=== PATIENT | male | born 1980 | race Caucasian/White ===

== ENCOUNTER 2020-06-20 16:07 | Emergency (ER) | payer SELFPAY ==
[~2020-06-20] VITALS: Ht 188 cm; Wt 109.1 kg
[2020-06-20 16:33] VITALS: Ht 188 cm; Wt 109.1 kg
[2020-06-20] MEDS ORDERED: AUGMENTIN 875-11 TAB PO (19:16)
[2020-06-20 19:30] VITALS: BP 132/81
== END 2020-06-21 07:35 | disposition home or self-care (01) ==
LOC: D.ER 16:07
DX: S71.151A Open bite, right thigh, initial encounter (principal); W54.0XXA Bitten by dog, initial encounter; Y93.9 Activity, unspecified; Y92.9 Unspecified place or not applicable; Z86.73 Personal history of transient ischemic attack (TIA), and cerebral infarction without residual deficits